=== PATIENT | female | born 1995 | race African-American/Black ===

== ENCOUNTER 2018-02-02 13:31 | Emergency (ER) | payer OTHER ==
[~2018-02-02] VITALS: Ht 175.3 cm; Wt 63.5 kg
[~2018-02-02 13:31] MED LIST: METR250T11 PO; METR500T PO; PREN-2 PO; PREN1TAB99 PO
[2018-02-02] MEDS ORDERED: cefTRIAXone IM 250 MG VIAL IM ONE (15:30)
[2018-02-02] MEDS ORDERED: AZITHROMYCIN 250 MG TABLET. PO ONE (15:30)
--- NOTE | 2018-02-02 15:30 | PHYS DOC ---
Past Medical History Past Medical History: Anxiety, Other Additional Past Medical Histor: hypoglycemia Past Surgical History: No Surgical History Alcohol Use: None Drug Use: None Adult General Chief Complaint Chief Complaint: ABDOMINAL PAIN HPI HPI Patient is a 22 year old female who presents with was here back on December 19 with lower abdominal pain and was diagnosed by a pelvic ultrasound with ovarian cysts and states she was put on antibiotic for urinary tract infection. Patient states that the pain has continued now she has upper and lower abdominal pain and states that it's like a constant cramping and doesn't really get better. She denies fever. Patient denies nausea, vomiting, chest pain, shortness of air or dysuria. Patient states she has white "fluffy"vaginal discharge is noticed it for the last 3 days and states that she is noticing a smell 2. Patient denies any vaginal itching or irritation or pain. Patient rates her pain a 9 out of 10. Patient states he takes no medications daily. Patient states that she does have the eczema and on control and has a history of anxiety. Patient states she has no known drug allergies. Patient also has a history of bacterial vaginosis, knee pain, cervicitis, dyspareunia, ovarian cyst. Review of Systems Review of Systems Constitutional: Denies fever or chills [] Eyes: Denies change in visual acuity, redness, or eye pain [] HENT: Denies nasal congestion or sore throat [] Respiratory: Denies cough or shortness of breath [] Cardiovascular: No additional information not addressed in HPI [] GI: Upper and lower abdominal pain. Denies nausea, vomiting, bloody stools or diarrhea [] : Vaginal discharge. Denies dysuria or hematuria [] Musculoskeletal: Denies back pain or joint pain [] Integument: Denies rash or skin lesions [] Neurologic: Denies headache, focal weakness or sensory changes [] Endocrine: Denies polyuria or polydipsia [] All other systems were reviewed and found to be within normal limits, except as documented in this note. Current Medications Current Medications Current Medications Medications (Trade) Dose Ordered Sig/Yonas Start Time Stop Time Status Last Admin Dose Admin Azithromycin (Zithromax) 1,000 mg 1X ONCE 02/02/18 15:30 02/02/18 15:31 DC 02/02/18 16:09 1,000 MG Ceftriaxone Sodium (Rocephin Im) 250 mg 1X ONCE 02/02/18 15:30 02/02/18 15:31 DC 02/02/18 16:08 250 MG Info (CONTRAST GIVEN -- Rx MONITORING) 1 each PRN DAILY PRN 02/02/18 16:00 02/04/18 15:59 Iohexol (Omnipaque 300 Mg/ml) 75 ml 1X ONCE 02/02/18 16:00 02/02/18 16:01 DC 02/02/18 16:04 75 ML Allergies Allergies Allergies Coded Allergies Type Severity Reaction Last Updated Verified No Known Drug Allergies 04/07/13 No Physical Exam Physical Exam Constitutional: Well developed, well nourished, no acute distress, non-toxic appearance. [] HENT: Normocephalic, atraumatic, bilateral external ears normal, oropharynx moist, no oral exudates, nose normal. [] Eyes: PERRLA, EOMI, conjunctiva normal, no discharge. [] Neck: Normal range of motion, no tenderness, supple, no stridor. [] Cardiovascular:Heart rate regular rhythm, no murmur [] Lungs & Thorax: Bilateral breath sounds clear to auscultation [] Abdomen: Bowel sounds normal, soft, no tenderness, no masses, no pulsatile masses. White Vaginal discharge.[] Skin: Warm, dry, no erythema, no rash. [] Back: No tenderness, no CVA tenderness. [] Extremities: No tenderness, no cyanosis, no clubbing, ROM intact, no edema. [] Neurologic: Alert and oriented X 3, normal motor function, normal sensory function, no focal deficits noted. [] Psychologic: Affect normal, judgement normal, mood normal. [] Current Patient Data Vital Signs Vital Signs Date Time Temp Pulse Resp B/P (MAP) Pulse Ox O2 Delivery O2 Flow Rate FiO2 02/02/18 14:14 97.8 70 20 121/73 (89) 100 Room Air 97.8 Lab Values Laboratory Tests Test 02/02/18 14:13 02/02/18 15:35 Urine Collection Type Unknown Urine Color Yellow Urine Clarity Clear Urine pH 7.5 Urine Specific [place] 1.025 Urine Protein 30 mg/dL (NEG-TRACE) Urine Glucose (UA) Negative mg/dL (NEG) Urine Ketones (Stick) Negative mg/dL (NEG) Urine Blood Negative (NEG) Urine Nitrite Negative (NEG) Urine Bilirubin Negative (NEG) Urine Urobilinogen Dipstick 0.2 mg/dL (0.2 mg/dL) Urine Leukocyte Esterase Negative (NEG) Urine RBC 0 /HPF (0-2) Urine WBC Occ /HPF (0-4) Urine Squamous Epithelial Cells Mod /LPF Urine Bacteria Few /HPF (0-FEW) Urine Mucus Mod /LPF Urine Test Negative (NEG) White Blood Count 6.4 x10^3/uL (4.0-11.0) Red Blood Count 3.73 x10^6/uL (3.50-5.40) Hemoglobin 11.9 g/dL (12.0-15.5) L Hematocrit 33.7 % (36.0-47.0) L Mean Corpuscular Volume 90 fL (79-100) Mean Corpuscular Hemoglobin 32 pg (25-35) Mean Corpuscular Hemoglobin Concent 35 g/dL (31-37) Red Cell Distribution Width 14.3 % (11.5-14.5) Platelet Count 191 x10^3/uL (140-400) Neutrophils (%) (Auto) 63 % (31-73) Lymphocytes (%) (Auto) 28 % (24-48) Monocytes (%) (Auto) 7 % (0-9) Eosinophils (%) (Auto) 1 % (0-3) Basophils (%) (Auto) 1 % (0-3) Neutrophils # (Auto) 4.1 x10^3uL (1.8-7.7) Lymphocytes # (Auto) 1.8 x10^3/uL (1.0-4.8) Monocytes # (Auto) 0.5 x10^3/uL (0.0-1.1) Eosinophils # (Auto) 0.0 x10^3/uL (0.0-0.7) Basophils # (Auto) 0.0 x10^3/uL (0.0-0.2) Sodium Level 140 mmol/L (136-145) Potassium Level 3.9 mmol/L (3.5-5.1) Chloride Level 106 mmol/L (98-107) Carbon Dioxide Level 24 mmol/L (21-32) Anion Gap 10 (6-14) Blood Urea Nitrogen 11 mg/dL (7-20) Creatinine 0.8 mg/dL (0.6-1.0) Estimated GFR (Cockcroft-Gault) 107.6 BUN/Creatinine Ratio 14 (6-20) Glucose Level 81 mg/dL (70-99) Calcium Level 8.6 mg/dL (8.5-10.1) Total Bilirubin 0.7 mg/dL (0.2-1.0) Aspartate Amino Transferase (AST) 16 U/L (15-37) Alanine Aminotransferase (ALT) 20 U/L (14-59) Alkaline Phosphatase 48 U/L (46-116) Total Protein 7.0 g/dL (6.4-8.2) Albumin 3.5 g/dL (3.4-5.0) Albumin/Globulin Ratio 1.0 (1.0-1.7) Lipase 126 U/L (73-393) Laboratory Tests 02/02/18 15:35 Laboratory Tests 02/02/18 15:35 Microbiology 02/02/18 Wet Prep - Final, Complete EKG EKG [] Radiology/Procedures Radiology/Procedures CT ABD PELV Impressions: [facility] [address] [place], [place] [id number] IMAGING REPORT Signed PATIENT: ELMER MERCADO ACCOUNT: [id number] : 1995 LOCATION: ER AGE: 22 SEX: F EXAM STATUS: REG ER ORD. PHYSICIAN: TOBY WONG APRN REASON: UPPER AND LOWER ABDOMINAL PAIN PROCEDURE: CT ABD PELV W/ IV CONTRST ONLY PQRS Compliance Statement: One or more of the following individualized dose reduction techniques were utilized for this examination: 1. Automated exposure control 2. Adjustment of the mA and/or kV according to patient size 3. Use of iterative reconstruction technique CT ABD PELV W/ IV CONTRST ONLY Clinical Indication: UPPER AND LOWER ABDOMINAL PAIN Comparison: None. Technique: Helical CT imaging of the abdomen and pelvis is performed after 75 cc of Omnipaque 300 IV contrast. Oral contrast not given. Findings: Lung bases clear. Cardiac size normal. Liver, gallbladder, spleen, pancreas, adrenal glands, abdominal aorta, and kidneys are normal. Stomach is not well distended accentuating the wall thickness. There is no dilated small bowel. Much of the colon is decompressed, limiting evaluation. No convincing colon wall thickening. The appendix is not identified. No secondary signs of appendicitis. No abdominal adenopathy or free fluid. Urinary bladder is normal. Anteverted uterus. Mild air in the vagina. 3.3 cm left adnexal cyst. Moderate pelvic free fluid. No acute bone abnormality. IMPRESSION: There is small left adnexal cyst and moderate pelvic free fluid. Findings are likely physiologic. There is otherwise no acute abdominal or pelvic abnormality. Electronically signed by: Neal Venegas MD (02/02/2018 4:17 PM) [id number] DICTATED and SIGNED BY: NEAL VENEGAS MD DATE: 02/02/18 1611 Course & Med Decision Making Course & Med Decision Making Patient is a 22 year old female who presents with was here back on December 19 with lower abdominal pain and was diagnosed by a pelvic ultrasound with ovarian cysts and states she was put on antibiotic for urinary tract infection. Patient states that the pain has continued now she has upper and lower abdominal pain and states that it's like a constant cramping and doesn't really get better. She denies fever. Patient denies nausea, vomiting, chest pain, shortness of air or dysuria. Patient states she has white "fluffy"vaginal discharge is noticed it for the last 3 days and states that she is noticing a smell 2. Patient denies any vaginal itching or irritation or pain. Patient rates her pain a 9 out of 10. Patient states he takes no medications daily. Patient states that she does have the eczema and on control and has a history of anxiety. Patient states she has no known drug allergies. Patient also has a history of bacterial vaginosis, knee pain, cervicitis, dyspareunia, ovarian cyst. Patient states that the cramping is constant and states she has not been taking anything for pain. Abdomen is soft and nontender and there are no masses felt. Pelvic exam shows white vaginal discharge but there was no redness or lesions Inside or outside vagina. Cervix is pink and without lesions. I did send off a wet mount and a swab for chlamydia and gonorrhea. I told the patient that the chlamydia and gonorrhea will come back in 48 hours and they will call her if it is positive. Also told the patient that I will treat her prophylactically for sexually transmitted diseases. When I looked back to patient's December 19 examination she only had a pelvic ultrasound and now that the pain has increased and is now in the upper abdomen area I will do a CT of the abdomen and pelvis. Lungs are clear bilaterally in all lobes. Heart rate regular without murmur. She has no extremity swelling. Skin is pink warm and dry. Mucous membranes moist. She is afebrile. Vital signs are within normal limits. Patient is alert and oriented and neurologically intact. CT abdomen pelvis shows There is small left adnexal cyst and moderate pelvic free fluid. Findings are likely physiologic. There is otherwise no acute abdominal or pelvic abnormality.Blood work is unremarkable. Urine is not infected. I will treat the patient for bacterial vaginosis as this was the only wet prep finding. Patient needs to follow up with her primary care doctor. Pelvic Exam: Army Manager present Abdomen: Nontender External Genitalia: Normal Skin Speculum: Normal vaginal mucosa, White cervical discharge Bimanual: No adnexal masses or tenderness, No CMT Dragon Disclaimer Dragon Disclaimer This electronic medical record was generated, in whole or in part, using a voice recognition dictation system. Departure Departure Impression: Primary Impression: Bacterial vaginosis Additional Impression: Ovarian cyst Disposition: HOME, SELF-CARE Condition: LEFT WITHOUT BEING SEEN Referrals: NO PCP (PCP) Patient Instructions: Bacterial Vaginosis, Ovarian Cyst Additional Instructions: FOLLOW UP WITH YOUR PRIMARY CARE PHYSICIAN. Scripts Metronidazole (METRONIDAZOLE) 500 Mg Tablet 1 TAB PO BID, #14 TAB Prov: TOBY WONG APRN 02/02/18 Problem Qualifiers Additional Impression: Ovarian cyst Laterality: bilateral Qualified Codes: N83.201 - Unspecified ovarian cyst, right side; N83.202 - Unspecified ovarian cyst, left side TOBY WONG TURN DOWN WORKER Feb 02, 2018 15:30
[2018-02-02 15:46] LABS: BASO % 1 % (0-3); EOS % 1 % (0-3); HEMATOCRIT 33.7 % (36.0-47.0); HEMOGLOBIN 11.9 g/dL (12.0-15.5); LYMPH # 1.8 x10^3/uL (1.0-4.8); LYMPH % 28 % (24-48); MEAN CORPUSCULAR HEMOGLOBIN 32 pg (25-35); MEAN CORPUSCULAR HGB CONC 35 g/dL (31-37); MEAN CORPUSCULAR VOLUME 90 fL (79-100); MONO # 0.5 x10^3/uL (0.0-1.1); MONO % 7 % (0-9); NEUT # 4.1 x10^3uL (1.8-7.7); NEUT % 63 % (31-73); PLATELET COUNT 191 x10^3/uL (140-400); RED BLOOD COUNT 3.73 x10^6/uL (3.50-5.40); RED CELL DISTRIBUTION WIDTH 14.3 % (11.5-14.5); WHITE BLOOD COUNT 6.4 x10^3/uL (4.0-11.0)
[2018-02-02 15:52] LABS: BILIRUBIN,URINE NEGATIVE (NEG); CLARITY,URINE CLEAR; COLOR,URINE YELLOW; NITRITE,URINE NEGATIVE (NEG); PH,URINE 7.5; PROTEIN,URINE 30 mg/dL (NEG-TRACE); UROBILINOGEN,URINE 0.2 mg/dL (0.2 mg/dL)
[2018-02-02 15:53] LABS: CALCIUM 8.6 mg/dL (8.5-10.1); CREATININE 0.8 mg/dL (0.6-1.0); GFR 107.6; POTASSIUM 3.9 mmol/L (3.5-5.1)
[2018-02-02 15:54] LABS: SQUAMOUS EPITHELIAL CELL,UR MOD /LPF
[2018-02-02 15:55] LABS: BACTERIA,URINE FEW /HPF (0-FEW); RBC,URINE 0 /HPF (0-2); WBC,URINE OCC /HPF (0-4)
[2018-02-02 15:56] LABS: U PREG PATIENT NEGATIVE (NEG)
[2018-02-02 15:59] LABS: ALBUMIN 3.5 g/dL (3.4-5.0); TOTAL BILIRUBIN 0.7 mg/dL (0.2-1.0)
[2018-02-02] MEDS ORDERED: IOHEXOL 300 MG/ML 100ML VIAL. IV ONE (16:00)
[2018-02-02] MEDS ORDERED: CONTRAST GIVEN. MC PRN (16:00)
--- NOTE | 2018-02-02 16:20 | RAD ---
PQRS Compliance Statement: One or more of the following individualized dose reduction techniques were utilized for this examination: 1. Automated exposure control 2. Adjustment of the mA and/or kV according to patient size 3. Use of iterative reconstruction technique CT ABD PELV W/ IV CONTRST ONLY Clinical Indication: UPPER AND LOWER ABDOMINAL PAIN Comparison: None. Technique: Helical CT imaging of the abdomen and pelvis is performed after 75 cc of Omnipaque 300 IV contrast. Oral contrast not given. Findings: Lung bases clear. Cardiac size normal. Liver, gallbladder, spleen, pancreas, adrenal glands, abdominal aorta, and kidneys are normal. Stomach is not well distended accentuating the wall thickness. There is no dilated small bowel. Much of the colon is decompressed, limiting evaluation. No convincing colon wall thickening. The appendix is not identified. No secondary signs of appendicitis. No abdominal adenopathy or free fluid. Urinary bladder is normal. Anteverted uterus. Mild air in the vagina. 3.3 cm left adnexal cyst. Moderate pelvic free fluid. No acute bone abnormality. IMPRESSION: There is small left adnexal cyst and moderate pelvic free fluid. Findings are likely physiologic. There is otherwise no acute abdominal or pelvic abnormality. Electronically signed by: Neal Edgar MD (02/02/2018 4:17 PM) [id number]
[2018-02-02] MEDS ORDERED: METR500T8 PO (16:32)
[2018-02-02 17:13] VITALS: BP 111/78
[2018-02-03 15:28] LABS: GC PROBE Negative (Negative)
== END 2018-02-02 17:10 | disposition home or self-care (01) ==
LOC: ER 13:31
DX: N76.0 Acute vaginitis (principal); N83.202 Unspecified ovarian cyst, left side
CPT/HCPCS: 36415; 74177; 80053; 81001; 81025; 83690; 85025; 87491; 87591; 96372; 99285; J0696; Q0111; Q0144; Q9967

== ENCOUNTER 2018-03-22 15:16 | Emergency (ER) | payer OTHER ==
[~2018-03-22] VITALS: Ht 172.7 cm; Wt 63.5 kg
[~2018-03-22 15:16] MED LIST changes: +METR-111 PO; +METR-84 PO; -METR250T11 PO
[2018-03-22] MEDS: IOHEXOL 300 MG/ML 100ML VIAL. IV ONE (15:45)
[2018-03-22 15:54] LABS: BILIRUBIN,URINE NEGATIVE (NEG); CLARITY,URINE CLEAR; COLOR,URINE YELLOW; NITRITE,URINE NEGATIVE (NEG); PH,URINE 6.5; PROTEIN,URINE 30 mg/dL (NEG-TRACE)
[2018-03-22 15:57] LABS: BACTERIA,URINE FEW /HPF (0-FEW); SQUAMOUS EPITHELIAL CELL,UR MANY /LPF
--- NOTE | 2018-03-22 15:57 | PHYS DOC ---
Past Medical History Past Medical History: Anxiety, Other Additional Past Medical Histor: hypoglycemia Past Surgical History: No Surgical History Alcohol Use: None Drug Use: None Adult General Chief Complaint Chief Complaint: ABDOMINAL PAIN HPI HPI Patient is a 22 year old female with history of anxiety who presents today complaining of 8 out of 10 bilateral sharp intermittent lower abdominal pain/ pelvic pain that began 3 days ago. Patient is also complaining of thick vaginal discharge for 3 days. Denies any chance she is . Denies any concerns for STDs. Denies any vomiting but states she is nauseated. Denies any urgency frequency dysuria. Review of Systems Review of Systems Constitutional: Denies fever or chills [] Eyes: Denies change in visual acuity, redness, or eye pain [] HENT: Denies nasal congestion or sore throat [] Respiratory: Denies cough or shortness of breath [] Cardiovascular: No additional information not addressed in HPI [] GI: Reports bilateral lower abdominal pain with nausea, denies vomiting bloody stools or diarrhea [] : Denies dysuria or hematuria [] Musculoskeletal: Denies back pain or joint pain [] Integument: Denies rash or skin lesions [] Neurologic: Denies headache, focal weakness or sensory changes [] All other systems were reviewed and found to be within normal limits, except as documented in this note. Current Medications Current Medications Current Medications Medications (Trade) Dose Ordered Sig/Yonas Start Time Stop Time Status Last Admin Dose Admin Acetaminophen (Tylenol) 1,000 mg 1X ONCE 03/22/18 17:30 03/22/18 18:02 DC Info (CONTRAST GIVEN -- Rx MONITORING) 1 each PRN DAILY PRN 03/22/18 16:00 03/24/18 15:59 Iohexol (Omnipaque 300 Mg/ml) 75 ml 1X ONCE 03/22/18 15:45 03/22/18 15:46 DC 03/22/18 15:45 75 ML Ketorolac Tromethamine (Toradol 30mg Vial) 30 mg 1X ONCE 03/22/18 15:45 03/22/18 15:46 DC 03/22/18 16:13 30 MG Sodium Chloride 1,000 ml @ 1,000 mls/hr 1X ONCE 03/22/18 15:45 03/22/18 16:44 DC 03/22/18 16:13 1,000 MLS/HR Allergies Allergies Allergies Coded Allergies Type Severity Reaction Last Updated Verified No Known Drug Allergies 04/07/13 No Physical Exam Physical Exam Constitutional: Well developed, well nourished, no acute distress, non-toxic appearance. [] HENT: Normocephalic, atraumatic, bilateral external ears normal, oropharynx moist, no oral exudates, nose normal. [] Eyes: PERRLA, EOMI, conjunctiva normal, no discharge. [] Neck: Normal range of motion, no tenderness, supple, no stridor. [] Cardiovascular:Heart rate regular rhythm, no murmur [] Lungs & Thorax: Bilateral breath sounds clear to auscultation [] Abdomen: Bowel sounds normal, soft, no right upper quadrant abdominal tenderness , generalized bilateral lower quadrant tenderness worse on the right lower quadrant. Negative psoas sign, negative obturator, negative Rovsing sign. No masses, no pulsatile masses. [] Pelvic exam External pelvic appears normal, cervix is visualized and closed. No CMT. No adnexal tenderness, small amount of brownish discharge in the vaginal vault. Skin: Warm, dry, no erythema, no rash. [] Back: No tenderness, no CVA tenderness. [] Extremities: No tenderness, no cyanosis, no clubbing, ROM intact, no edema. [] Neurologic: Alert and oriented X 3, normal motor function, normal sensory function, no focal deficits noted. [] Psychologic: Affect normal, judgement normal, mood normal. [] Current Patient Data Vital Signs Vital Signs Date Time Temp Pulse Resp B/P (MAP) Pulse Ox O2 Delivery O2 Flow Rate FiO2 03/22/18 15:30 99.6 75 18 120/57 (78) 100 Room Air 99.6 Lab Values Laboratory Tests Test 03/22/18 15:20 03/22/18 15:48 03/22/18 16:15 Urine Collection Type Unknown Urine Color Yellow Urine Clarity Clear Urine pH 6.5 Urine Specific [place] >=1.030 Urine Protein 30 mg/dL (NEG-TRACE) Urine Glucose (UA) Negative mg/dL (NEG) Urine Ketones (Stick) Trace mg/dL (NEG) Urine Blood Negative (NEG) Urine Nitrite Negative (NEG) Urine Bilirubin Negative (NEG) Urine Urobilinogen Dipstick 1.0 mg/dL (0.2 mg/dL) Urine Leukocyte Esterase Small (NEG) Urine RBC 0 /HPF (0-2) Urine WBC 1-4 /HPF (0-4) Urine Squamous Epithelial Cells Many /LPF Urine Bacteria Few /HPF (0-FEW) Urine Mucus Marked /LPF Urine Opiates Screen Neg (NEG) Urine Methadone Screen Neg (NEG) Urine Barbiturates Neg (NEG) Urine Phencyclidine Screen Neg (NEG) Urine Amphetamine/Methamphetamine Neg (NEG) Urine Benzodiazepines Screen Neg (NEG) Urine Cocaine Screen Neg (NEG) Urine Cannabinoids Screen Pos (NEG) Urine Ethyl Alcohol Neg (NEG) POC Urine HCG, Qualitative Hcg negative (Negative) White Blood Count 4.1 x10^3/uL (4.0-11.0) Red Blood Count 4.03 x10^6/uL (3.50-5.40) Hemoglobin 12.8 g/dL (12.0-15.5) Hematocrit 36.8 % (36.0-47.0) Mean Corpuscular Volume 91 fL (79-100) Mean Corpuscular Hemoglobin 32 pg (25-35) Mean Corpuscular Hemoglobin Concent 35 g/dL (31-37) Red Cell Distribution Width 13.8 % (11.5-14.5) Platelet Count 198 x10^3/uL (140-400) Neutrophils (%) (Auto) 39 % (31-73) Lymphocytes (%) (Auto) 52 % (24-48) H Monocytes (%) (Auto) 7 % (0-9) Eosinophils (%) (Auto) 1 % (0-3) Basophils (%) (Auto) 1 % (0-3) Neutrophils # (Auto) 1.6 x10^3uL (1.8-7.7) L Lymphocytes # (Auto) 2.1 x10^3/uL (1.0-4.8) Monocytes # (Auto) 0.3 x10^3/uL (0.0-1.1) Eosinophils # (Auto) 0.0 x10^3/uL (0.0-0.7) Basophils # (Auto) 0.0 x10^3/uL (0.0-0.2) Sodium Level 139 mmol/L (136-145) Potassium Level 3.7 mmol/L (3.5-5.1) Chloride Level 102 mmol/L (98-107) Carbon Dioxide Level 28 mmol/L (21-32) Anion Gap 9 (6-14) Blood Urea Nitrogen 7 mg/dL (7-20) Creatinine 0.9 mg/dL (0.6-1.0) Estimated GFR (Cockcroft-Gault) 93.9 BUN/Creatinine Ratio 8 (6-20) Glucose Level 95 mg/dL (70-99) Calcium Level 8.8 mg/dL (8.5-10.1) Total Bilirubin 0.9 mg/dL (0.2-1.0) Aspartate Amino Transferase (AST) 19 U/L (15-37) Alanine Aminotransferase (ALT) 22 U/L (14-59) Alkaline Phosphatase 45 U/L (46-116) L Total Protein 7.6 g/dL (6.4-8.2) Albumin 3.9 g/dL (3.4-5.0) Albumin/Globulin Ratio 1.1 (1.0-1.7) Lipase 91 U/L (73-393) Ethyl Alcohol Level < 10 mg/dL (0-10) Laboratory Tests 03/22/18 16:15 Laboratory Tests 03/22/18 16:15 Microbiology 03/22/18 Wet Prep - Final, Complete EKG EKG [] Radiology/Procedures Radiology/Procedures [] Course & Med Decision Making Course & Med Decision Making Pertinent Labs and Imaging studies reviewed. (See chart for details) This is a 22-year-old female patient presented to the ED today complaining of bilateral pelvic/lower abdominal pain with nausea that began 3 days ago. Also complaining of vaginal discharge. CBC, CMP, lipase, negative for any acute findings. Urine analysis appears contaminated. The CT of the abdomen and pelvic is negative for any acute findings. Wet prep is negative for infection. Patient will be discharged with instructions to follow-up with BROWNELL OPERATOR and PCP. OTC pain relievers. Dragon Disclaimer Dragon Disclaimer This electronic medical record was generated, in whole or in part, using a voice recognition dictation system. Departure Departure Impression: Primary Impression: Abdominal pain Disposition: 01 HOME, SELF-CARE Condition: STABLE Referrals: NO PCP (PCP) CARSON MONTANEZ MD follow up in one week Patient Instructions: Abdominal Pain Additional Instructions: You were evaluated in the emergency room for abdominal pain. Your lab work as well as CT was negative for any acute findings. We sent you home. Follow-up with your doctor in 1-2 weeks. You can also follow up with the specialist provided. Take Tylenol /Motrin for any pain or fever. Come back to the ED at any point symptoms worsen. Problem Qualifiers Primary Impression: Abdominal pain Abdominal location: right lower quadrant Qualified Codes: R10.31 - Right lower quadrant pain MICHELLE DOS SANTOS APRN Mar 22, 2018 15:57
[2018-03-22 15:58] LABS: RBC,URINE 0 /HPF (0-2)
[2018-03-22] MEDS ORDERED: CONTRAST GIVEN. MC PRN (16:00)
[2018-03-22 16:02] LABS: BARBITURATES NEG (NEG); BENZODIAZEPINES NEG (NEG); CANNABINOIDS POS (NEG); COCAINE NEG (NEG); METHADONE NEG (NEG); OPIATES NEG (NEG); PHENCYCLIDINE NEG (NEG)
[2018-03-22 16:12] LABS: AMPHETAMINE/METHAMPHETAMINE NEG (NEG)
[2018-03-22] MEDS: KETOROLAC 30 MG/ML VIAL. IV ONE (16:13)
[2018-03-22] MEDS: IV NORMAL SALINE 1000ML BAG 1,000 ML IV ONE (16:13)
[2018-03-22 16:23] LABS: BASO % 1 % (0-3); EOS % 1 % (0-3); HEMATOCRIT 36.8 % (36.0-47.0); HEMOGLOBIN 12.8 g/dL (12.0-15.5); LYMPH # 2.1 x10^3/uL (1.0-4.8); LYMPH % 52 % (24-48); MEAN CORPUSCULAR HEMOGLOBIN 32 pg (25-35); MEAN CORPUSCULAR HGB CONC 35 g/dL (31-37); MEAN CORPUSCULAR VOLUME 91 fL (79-100); MONO # 0.3 x10^3/uL (0.0-1.1); MONO % 7 % (0-9); NEUT # 1.6 x10^3uL (1.8-7.7); NEUT % 39 % (31-73); PLATELET COUNT 198 x10^3/uL (140-400); RED BLOOD COUNT 4.03 x10^6/uL (3.50-5.40); RED CELL DISTRIBUTION WIDTH 13.8 % (11.5-14.5); WHITE BLOOD COUNT 4.1 x10^3/uL (4.0-11.0)
[2018-03-22] MEDS: ACETAMINOPHEN 500 MG TABLET PO ONE (16:25)
[2018-03-22 16:32] LABS: CALCIUM 8.8 mg/dL (8.5-10.1); CREATININE 0.9 mg/dL (0.6-1.0); GFR 93.9; POTASSIUM 3.7 mmol/L (3.5-5.1)
[2018-03-22 16:38] LABS: ALBUMIN 3.9 g/dL (3.4-5.0); ALBUMIN/GLOBULIN RATIO 1.1 (1.0-1.7); TOTAL BILIRUBIN 0.9 mg/dL (0.2-1.0); TOTAL PROTEIN 7.6 g/dL (6.4-8.2)
[2018-03-22 17:00] VITALS: BP 107/62
[2018-03-22] MEDS ORDERED: ACETAMINOPHEN 500 MG TABLET PO ONE (17:30)
--- NOTE | 2018-03-22 17:43 | RAD ---
PQRS Compliance statement: One or more of the following individualized dose reduction techniques were utilized for this examination: 1. Automated exposure control. 2. Adjustment of the mA and/or kV according to patient size. 3. Use of iterative reconstruction technique. Indication:RIGHT LOWER QUADRANT AND PELVIC PAIN X2DAYS
OMNI 300 75ML, PRIOR SENT TECHNIQUE: CT abdomen and pelvis with IV contrast with multiplanar reformats. COMPARISON: 02/02/2018 FINDINGS: Heart is normal in size. No pericardial or pleural effusion. Clear lung bases. Liver, spleen, gallbladder, pancreas, adrenals and kidneys are within normal limits. No free pelvic fluid or ascites. No enlarged retroperitoneal or pelvic adenopathy. No bowel obstruction. Appendix is visualized without periappendiceal inflammatory changes. No pneumoperitoneum. Anteverted uterus. Urinary bladder is within normal limits. No suspicious bony lesion. IMPRESSION: No acute findings. Electronically signed by: Melvin Cannon DO (03/22/2018 5:39 PM) [facility]
[2018-03-23 13:21] LABS: GC PROBE Negative (Negative)
== END 2018-03-22 19:11 | disposition home or self-care (01) ==
LOC: ER 15:16
DX: R10.31 Right lower quadrant pain (principal); R10.2 Pelvic and perineal pain; R10.32 Left lower quadrant pain; N89.8 Other specified noninflammatory disorders of vagina; F41.9 Anxiety disorder, unspecified
CPT/HCPCS: 36415; 74177; 80053; 80307; 81001; 81025; 83690; 85025; 87086; 87491; 87591; 96374; 99284; G0480; J1885; J7030; Q0111; Q9967

== ENCOUNTER 2018-05-06 10:00 | Emergency (ER) | payer OTHER ==
[~2018-05-06] VITALS: Ht 172.7 cm; Wt 63.5 kg
[2018-05-06 10:38] VITALS: BP 151/58
[2018-05-06 10:44] LABS: BILIRUBIN,URINE NEGATIVE (NEG); COLOR,URINE YELLOW; NITRITE,URINE NEGATIVE (NEG); PH,URINE 6.5; PROTEIN,URINE 30 mg/dL (NEG-TRACE)
[2018-05-06 10:57] LABS: BACTERIA,URINE MODERATE /HPF (0-FEW); CLARITY,URINE HAZY; RBC,URINE OCC /HPF (0-2); SQUAMOUS EPITHELIAL CELL,UR MANY /LPF
[2018-05-06] MEDS ORDERED: METR500T PO (11:57)
[2018-05-06] MEDS ORDERED: CEPH500T PO (11:57)
--- NOTE | 2018-05-06 11:57 | PHYS DOC ---
Past Medical History Past Medical History: No Pertinent History, Anxiety, Other Additional Past Medical Histor: hypoglycemia Past Surgical History: No Surgical History Alcohol Use: None Drug Use: None Adult General Chief Complaint Chief Complaint: VAGINAL PROBLEM HPI HPI Patient is a 22 year old female with history of anxiety who presents today complaining of vaginal discharge with itching for one day. Patient denies any chance she is . Denies any concerns for STDs. Denies any abdominal pain nausea or vomiting. Review of Systems Review of Systems Constitutional: Denies fever or chills [] Eyes: Denies change in visual acuity, redness, or eye pain [] HENT: Denies nasal congestion or sore throat [] Respiratory: Denies cough or shortness of breath [] Cardiovascular: No additional information not addressed in HPI [] GI: Reports vaginal discharge with itching. Denies abdominal pain, nausea, vomiting, bloody stools or diarrhea [] : Denies dysuria or hematuria [] Musculoskeletal: Denies back pain or joint pain [] Integument: Denies rash or skin lesions [] Neurologic: Denies headache, focal weakness or sensory changes [] All other systems were reviewed and found to be within normal limits, except as documented in this note. Allergies Allergies Allergies Coded Allergies Type Severity Reaction Last Updated Verified No Known Drug Allergies 04/07/13 No Physical Exam Physical Exam Constitutional: Well developed, well nourished, no acute distress, non-toxic appearance. [] HENT: Normocephalic, atraumatic, bilateral external ears normal, oropharynx moist, no oral exudates, nose normal. [] Eyes: PERRLA, EOMI, conjunctiva normal, no discharge. [] Neck: Normal range of motion, no tenderness, supple, no stridor. [] Cardiovascular:Heart rate regular rhythm, no murmur [] Lungs & Thorax: Bilateral breath sounds clear to auscultation [] Abdomen: Bowel sounds normal, soft, no tenderness, no masses, no pulsatile masses. [] Pelvic exam External pelvic appears normal, cervix is closed, no CMT, no adnexal tenderness , small amount of thick vaginal discharge noted on physical exam. Skin: Warm, dry, no erythema, no rash. [] Back: No tenderness, no CVA tenderness. [] Extremities: No tenderness, no cyanosis, no clubbing, ROM intact, no edema. [] Neurologic: Alert and oriented X 3, normal motor function, normal sensory function, no focal deficits noted. [] Psychologic: Affect normal, judgement normal, mood normal. [] Current Patient Data Vital Signs Vital Signs Date Time Temp Pulse Resp B/P (MAP) Pulse Ox O2 Delivery O2 Flow Rate FiO2 05/06/18 10:38 98.3 77 18 151/58 (89) 99 Room Air 98.3 Lab Values Laboratory Tests Test 05/06/18 10:25 05/06/18 10:35 Urine Collection Type Clean catch Urine Color Yellow Urine Clarity Hazy Urine pH 6.5 Urine Specific [place] >=1.030 Urine Protein 30 mg/dL (NEG-TRACE) Urine Glucose (UA) Negative mg/dL (NEG) Urine Ketones (Stick) Negative mg/dL (NEG) Urine Blood Negative (NEG) Urine Nitrite Negative (NEG) Urine Bilirubin Negative (NEG) Urine Urobilinogen Dipstick 1.0 mg/dL (0.2 mg/dL) Urine Leukocyte Esterase Moderate (NEG) Urine RBC Occ /HPF (0-2) Urine WBC 5-10 /HPF (0-4) Urine Squamous Epithelial Cells Many /LPF Urine Bacteria Moderate /HPF (0-FEW) Urine Mucus Marked /LPF POC Urine HCG, Qualitative Hcg positive (Negative) Microbiology 05/06/18 Wet Prep - Final, Complete EKG EKG [] Radiology/Procedures Radiology/Procedures [] Course & Med Decision Making Course & Med Decision Making Pertinent Labs and Imaging studies reviewed. (See chart for details) This is a 22-year-old female patient presented to the ED today with vaginal discharge with itching for one day. Denies any abdominal pain. Denies any vaginal bleeding. Positive urine hCG-provided OB for follow-up Urine analysis is noted for UTI-discharge to cephalexin Wet prep noted for bacterial vaginosis-discharged with Flagyl Wet prep also noted for yeast infection. Instructed to use [id number] miconazole Provided return precautions and discharged in stable condition. Dragon Disclaimer Dragon Disclaimer This electronic medical record was generated, in whole or in part, using a voice recognition dictation system. Departure Departure Impression: Primary Impression: Bacterial vaginosis Additional Impressions: Urinary tract infection Yeast infection Disposition: HOME, SELF-CARE Condition: STABLE Referrals: NO PCP (PCP) SABA LAMBERT Jr, MD Follow up in 1-2 weeks Patient Instructions: ABCs of , Bacterial Vaginosis, Urinary Tract Infection Additional Instructions: You were evaluated in the emergency room for vaginal discharge, congratulations you are . You also have bacterial vaginosis, urinary tract infection, and a yeast infection. Take the prescribed antibiotics until completed. Please use [id number] miconazole inserts for yeast infection. Follow-up with the provided [employer] in the next 1 week. Scripts Metronidazole (FLAGYL) 500 Mg Tablet 1 TAB PO BID, #14 TAB Prov: MICHELLE DOS SANTOS APRN 05/06/18 Cephalexin (CEPHALEXIN) 500 Mg Tablet 1 TAB PO BID, #14 TAB Prov: MICHELLE DOS SANTOS APRN 05/06/18 Problem Qualifiers Additional Impressions: Urinary tract infection Urinary tract infection type: site unspecified Hematuria presence: without hematuria Qualified Codes: N39.0 - Urinary tract infection, site not specified MICHELLE DOS SANTOS APRN May 06, 2018 11:57
[2018-05-07 12:21] LABS: GC PROBE Negative (Negative)
== END 2018-05-06 12:03 | disposition home or self-care (01) ==
LOC: ER 10:00
DX: Z33.1 Pregnant state, incidental (principal); N76.0 Acute vaginitis; B96.89 Other specified bacterial agents as the cause of diseases classified elsewhere; B37.49 Other urogenital candidiasis; F41.9 Anxiety disorder, unspecified
CPT/HCPCS: 81001; 81025; 87086; 87491; 87591; 99283; Q0111